=== PATIENT | male | born 1995 | race Caucasian/White ===

== ENCOUNTER 2018-10-30 16:34 | Emergency (ER) | payer SELFPAY ==
[~2018-10-30 16:34] MED LIST: FLUO40CA76 PO; NO RTN MEDS; QUET25TA31 PO
--- NOTE | 2018-10-30 16:42 | ER Report ---
History and Physical Time Seen By MD: 16:42 HPI/ROS CHIEF COMPLAINT: Diarrhea HISTORY OF PRESENT ILLNESS: This is a 23-year-old male presents to the emergency department for diarrhea. Patient states that for at least 1 week he's had diarrhea, continuous throughout the day, he states that yesterday he does have a little bit of blood noted in his stool, he does feel that this is from local irritation. No dark blood noted. Intermittent nausea no vomiting. Lower abdominal pain. Denies fevers or chills. No chest pain or shortness of breath. No headaches or rashes. No dysuria. REVIEW OF SYSTEMS: Constitutional: As above. Eyes: No discharge. ENT: No sore throat. Cardiovascular: No chest pain, no palpitations. Respiratory: No cough, no shortness of breath. Gastrointestinal: As above. Genitourinary: No hematuria. Musculoskeletal: No back pain. Skin: No rashes. Neurological: No headache. Allergies: Coded Allergies: No Known Drug Allergies (Verified , 10/30/18) Home Meds Active Scripts Ondansetron Hcl (ZOFRAN) 4 Mg Tablet, 4 MG PO Q4-6H PRN for prn, #20 TAB Prov:CAROLINE DÍAZ [facility] 10/30/18 Ciprofloxacin Hcl 500 Mg Tab (CIPRO 500 MG TAB) 500 Mg Tablet, 500 MG PO BID for 7 Days, #14 TAB 0 Refills Prov:CAROLINE DÍAZ [facility]- 10/30/18 Past Medical/Surgical History Patient has a past medical and surgical history of depression, cutting, sutures and scalp from a fall at age 4 otherwise normal other significant history. Reviewed Nurses Notes: Yes Hx Smoking: No Hx Alcohol Use: No Constitutional Vital Sign - Last 24 Hours 10/30/18 10/30/18 10/30/18 10/30/18 16:41 17:00 17:30 18:00 Temp 98.5 Pulse 65 75 ??? 64 Resp 20 21 Pulse Ox 96 95 92 O2 Delivery Room Air Physical Exam General Appearance: The patient is alert, has no immediate need for airway protection and no signs of toxicity. Eyes: Pupils equal and round no pallor or injection. ENT, Mouth: Mucous membranes are moist. Respiratory: There are no retractions, lungs are clear to auscultation. Cardiovascular: Regular rate and rhythm. Gastrointestinal: Abdomen is soft and non tender, no masses, bowel sounds del l. Neurological: Alert and oriented 4. Moving all extremities. Following all commands. No focal neurodeficits. Skin: Warm and dry, no rashes. Musculoskeletal: Neck is supple non tender. Extremities are nontender, nonswollen and have full range of motion. DIFFERENTIAL DIAGNOSIS: After history and physical exam differential diagnosis was considered for abdominal pain including but not limited to appendicitis, cholecystitis, colitis, gastritis and urinary tract infection. Medical Decision Making Data Points Result Diagram: 10/30/18 1654 10/30/18 1654 Laboratory Hematology Test 10/30/18 16:46 10/30/18 16:54 Urine Color Yellow Urine Clarity Clear Urine pH 5.0 pH (4.8-9.5) Urine Specific [place] 1.025 Urine Protein Negative mg/dL (NEGATIVE) Urine Glucose (UA) Negative mg/dL (NEGATIVE) Urine Ketones Negative mg/dL (NEGATIVE) Urine Blood Small (NEGATIVE) Urine Nitrite Negative (NEGATIVE) Urine Bilirubin Negative (NEGATIVE) Urine Urobilinogen Negative mg/dL (0.2-1.9) Urine Leukocyte Esterase Negative (NEGATIVE) Urine RBC <1 /HPF (0-2/HPF) Urine WBC 1 /HPF (0-5/HPF) Urine Squamous Epithelial Cells Few /LPF (</=FEW) Urine Bacteria Negative /HPF (NONE-FEW) Urine Mucus Few /HPF (NONE-FEW) Red Blood Count 5.60 M/uL (4.00-5.60) Mean Corpuscular Volume 92.0 fL (80.0-96.0) Mean Corpuscular Hemoglobin 31.7 pg (26.0-33.0) Mean Corpuscular Hemoglobin Concent 34.4 g/dL (32.0-36.0) Red Cell Distribution Width 13.1 % (11.5-14.5) Mean Platelet Volume 8.5 fL (7.2-11.1) Neutrophils (%) (Auto) 57.9 % (39.4-72.5) Lymphocytes (%) (Auto) 31.3 % (17.6-49.6) Monocytes (%) (Auto) 9.4 % (4.1-12.4) Eosinophils (%) (Auto) 1.0 % (0.4-6.7) Basophils (%) (Auto) 0.4 % (0.3-1.4) Nucleated RBC Relative Count (auto) 0.1 /100WBC Neutrophils # (Auto) 5.1 K/uL (2.0-7.4) Lymphocytes # (Auto) 2.8 K/uL (1.3-3.6) Monocytes # (Auto) 0.8 K/uL (0.3-1.0) Eosinophils # (Auto) 0.1 K/uL (0.0-0.5) Basophils # (Auto) 0.0 K/uL (0.0-0.1) Nucleated RBC Absolute Count (auto) 0.00 K/uL Sodium Level 141 mmol/L (137-145) Potassium Level 3.9 mmol/L (3.5-5.0) Chloride Level 106 mmol/L (98-107) Carbon Dioxide Level 26 mmol/L (22-30) Blood Urea Nitrogen 12 mg/dl (9-21) Creatinine 0.80 mg/dl (0.66-1.25) Glomerular Filtration Rate Calc > 60.0 Random Glucose 94 mg/dl (75-110) Calcium Level 9.5 mg/dl (8.4-10.2) Total Bilirubin 0.7 mg/dl (0.2-1.3) Aspartate Amino Transf (AST/SGOT) 24 U/L (0-35) Alanine Aminotransferase (ALT/SGPT) 22 U/L (0-56) Alkaline Phosphatase 107 U/L (0-126) Total Protein 8.5 g/dl (6.3-8.2) Albumin 4.7 g/dl (3.5-5.0) Chemistry Test 10/30/18 16:46 10/30/18 16:54 Urine Color Yellow Urine Clarity Clear Urine pH 5.0 pH (4.8-9.5) Urine Specific [place] 1.025 Urine Protein Negative mg/dL (NEGATIVE) Urine Glucose (UA) Negative mg/dL (NEGATIVE) Urine Ketones Negative mg/dL (NEGATIVE) Urine Blood Small (NEGATIVE) Urine Nitrite Negative (NEGATIVE) Urine Bilirubin Negative (NEGATIVE) Urine Urobilinogen Negative mg/dL (0.2-1.9) Urine Leukocyte Esterase Negative (NEGATIVE) Urine RBC <1 /HPF (0-2/HPF) Urine WBC 1 /HPF (0-5/HPF) Urine Squamous Epithelial Cells Few /LPF (</=FEW) Urine Bacteria Negative /HPF (NONE-FEW) Urine Mucus Few /HPF (NONE-FEW) White Blood Count 8.8 k/uL (4.5-11.0) Red Blood Count 5.60 M/uL (4.00-5.60) Hemoglobin 17.7 g/dL (14.0-18.0) Hematocrit 51.6 % (42.0-52.0) Mean Corpuscular Volume 92.0 fL (80.0-96.0) Mean Corpuscular Hemoglobin 31.7 pg (26.0-33.0) Mean Corpuscular Hemoglobin Concent 34.4 g/dL (32.0-36.0) Red Cell Distribution Width 13.1 % (11.5-14.5) Platelet Count 257 K/uL (150-450) Mean Platelet Volume 8.5 fL (7.2-11.1) Neutrophils (%) (Auto) 57.9 % (39.4-72.5) Lymphocytes (%) (Auto) 31.3 % (17.6-49.6) Monocytes (%) (Auto) 9.4 % (4.1-12.4) Eosinophils (%) (Auto) 1.0 % (0.4-6.7) Basophils (%) (Auto) 0.4 % (0.3-1.4) Nucleated RBC Relative Count (auto) 0.1 /100WBC Neutrophils # (Auto) 5.1 K/uL (2.0-7.4) Lymphocytes # (Auto) 2.8 K/uL (1.3-3.6) Monocytes # (Auto) 0.8 K/uL (0.3-1.0) Eosinophils # (Auto) 0.1 K/uL (0.0-0.5) Basophils # (Auto) 0.0 K/uL (0.0-0.1) Nucleated RBC Absolute Count (auto) 0.00 K/uL Glomerular Filtration Rate Calc > 60.0 Calcium Level 9.5 mg/dl (8.4-10.2) Total Bilirubin 0.7 mg/dl (0.2-1.3) Aspartate Amino Transf (AST/SGOT) 24 U/L (0-35) Alanine Aminotransferase (ALT/SGPT) 22 U/L (0-56) Alkaline Phosphatase 107 U/L (0-126) Total Protein 8.5 g/dl (6.3-8.2) Albumin 4.7 g/dl (3.5-5.0) Urinalysis Test 10/30/18 16:46 Urine Color Yellow Urine Clarity Clear Urine pH 5.0 pH (4.8-9.5) Urine Specific [place] 1.025 Urine Protein Negative mg/dL (NEGATIVE) Urine Glucose (UA) Negative mg/dL (NEGATIVE) Urine Ketones Negative mg/dL (NEGATIVE) Urine Blood Small (NEGATIVE) Urine Nitrite Negative (NEGATIVE) Urine Bilirubin Negative (NEGATIVE) Urine Urobilinogen Negative mg/dL (0.2-1.9) Urine Leukocyte Esterase Negative (NEGATIVE) Urine RBC <1 /HPF (0-2/HPF) Urine WBC 1 /HPF (0-5/HPF) Urine Squamous Epithelial Cells Few /LPF (</=FEW) Urine Bacteria Negative /HPF (NONE-FEW) Urine Mucus Few /HPF (NONE-FEW) EKG/Imaging Imaging PATIENT NAME: Hao Ceron : 1995 MR: [id number] V: [id number] EXAM DATE: [id number] ORDERING PHYSICIAN: CAROLINE DÍAZ TECHNOLOGIST: Location: [facility] - [place] Patient: Hao Ceron : 1995 Visit/Account:[id number] Date of Sevice: 10/30/2018 CT ABDOMEN PELVIS W/ CON HISTORY: lower abd pain, diarrhea x1 week, some blood TECHNIQUE: Following administration of IV contrast contiguous axial images acquired through the abdomen/pelvis. Coronal and sagittal reformatting also performed. One of the following dose optimization techniques was utilized in the performance of this exam: Automated exposure control; adjustment of the mA and/or kV according to the patient's size; or use of an iterative reconstruction technique. Specific details can be referenced in the facility's radiology CT exam operational policy. CONTRAST: 75 mL Isovue-370 COMPARISON: None. FINDINGS: Visualized lung bases: Negative. Hepatobiliary: Negative. Spleen: Negative. Adrenals: Negative. Pancreas: Negative. Kidneys ureters or bladder: Negative. Genitalia: Negative. GI: Distal colon is decompressed. There is diffuse mild mucosal thickening seen through the descending and sigmoid colon. While decompression can give this appearance, given history this probably represents mild uncomplicated colitis. There are no diverticuli. Proximal colon is unremarkable and the appendix appears normal. Small bowel normal. Vessels/spaces/nodes: Negative. Bones/soft tissues: Negative. Additional findings: None pertinent. IMPRESSION: Uncomplicated mild colitis involving the descending and sigmoid colon. Otherwise normal. Report Dictated By: Gianni Lindsay MD at 10/30/2018 5:55 PM Report E-Signed By: Gianni Lindsay MD at 10/30/2018 6:00 PM WSN:[id number] ED Course/Re-evaluation Clinical Indication for ER IV: Hydration, IV Access ED Course The patient was admitted to room. A history and physical obtained. Differential diagnoses were considered. An IV was started. A CBC, CMP and UA were collected. A 1 L normal saline bolus was given. 4 mg IV Zofran, with significant relief of symptoms. Abdomen pelvis CT showing colitis otherwise unremarkable. Patient was unable to provide a stool sample however I do feel that this could be infectious as this is been going on for at least 1 week, going treated as such, she was started on Cipro. Patient expressed understanding and was discharged home. I also recommended following up with and establishing with a primary care provider within one week, if this is a recurrent problem that he needs to follow-up with one of the general surgeons for possible colonoscopy and consult. He had no other questions or concerns at this time. Decision to Disposition Date: October 30, 2018 Decision to Disposition Time: 18:23 Depart Departure Latest Vital Signs Vital Signs Date Time Temp Pulse Resp B/P (MAP) Pulse Ox O2 Delivery O2 Flow Rate FiO2 10/30/18 18:00 64 21 92 10/30/18 16:41 98.5 Room Air Impression: Primary Impression: Colitis Condition: Improved Disposition: HOME OR SELF-CARE Referrals: CHELITA NICHOLAS JOHN A MD New Scripts Ondansetron Hcl (ZOFRAN) 4 Mg Tablet 4 MG PO Q4-6H PRN for prn, #20 TAB Prov: CAROLINE DÍAZ [facility]- 10/30/18 Ciprofloxacin Hcl 500 Mg Tab (CIPRO 500 MG TAB) 500 Mg Tablet 500 MG PO BID for 7 Days, #14 TAB 0 Refills Prov: CAROLINE DÍAZ [facility]- 10/30/18 Patient Instructions: Colitis (ED) Additional Instructions: Take the antibiotics for the diarrhea (colitis). Use the Zofran as needed for nausea and vomiting. Drink plenty of fluids. Get plenty of rest. Eat a bland diet for the next 24-48 hours. Establish with and follow up with a primary care provider within one week if no improvement. If you have recurrent diarrhea, you may need to follow up with surgery for a colonoscopy. Return to the ED for any other concerns or worsening symptoms. CAROLINE DÍAZ-BC October 30, 2018 16:42
[2018-10-30] MEDS ORDERED: NS(*) 0.9% 1000 ML BAG 1,000 ML IV ONE (16:54)
[2018-10-30] MEDS ORDERED: ONDANSETRON 4 MG/2 ML VIAL IVP ONE (16:55)
[2018-10-30 17:08] LABS: PLATELET COUNT, AUTOMATED 257 K/uL (150-450)
[2018-10-30] MEDS ORDERED: IOPAMIDOL 76% 150 ML INFUS BTL 150 ML ONE (17:28)
--- NOTE | 2018-10-30 18:03 | RADIOLOGY IMAGING REPORT ---
FACILITY: [facility] PATIENT NAME: Hao Ceron : 1995 MR: [id number] V: [id number] EXAM DATE: ORDERING PHYSICIAN: CAROLINE DÍAZ TECHNOLOGIST: Location: [facility] - [place] Patient: Hao Ceron : 1995 Visit/Account:[id number] Date of Sevice: 10/30/2018 CT ABDOMEN PELVIS W/ CON HISTORY: lower abd pain, diarrhea x1 week, some blood TECHNIQUE: Following administration of IV contrast contiguous axial images acquired through the abdom en/pelvis. Coronal and sagittal reformatting also performed. One of the following dose optimization techniques was utilized in the performance of this exam: Automated exposure control; adjustment of t he mA and/or kV according to the patient's size; or use of an iterative reconstruction technique. S pecific details can be referenced in the facility's radiology CT exam operational policy. CONTRAST: 75 mL Isovue-370 COMPARISON: None. FINDINGS: Visualized lung bases: Negative. Hepatobiliary: Negative. Spleen: Negative. Adrenals: Negative. Pancreas: Negative. Kidneys ureters or bladder: Negative. Genitalia: Negative. GI: Distal colon is decompressed. There is diffuse mild mucosal thickening seen through the descendi ng and sigmoid colon. While decompression can give this appearance, given history this probably repre sents mild uncomplicated colitis. There are no diverticuli. Proximal colon is unremarkable and the ap pendix appears normal. Small bowel normal. Vessels/spaces/nodes: Negative. Bones/soft tissues: Negative. Additional findings: None pertinent. IMPRESSION: Uncomplicated mild colitis involving the descending and sigmoid colon. Otherwise normal. Report Dictated By: Gianni Lindsay MD at 10/30/2018 5:55 PM Report E-Signed By: Gianni Lindsay MD at 10/30/2018 6:00 PM WSN:[id number]
[2018-10-30] MEDS ORDERED: CIPR-344 PO (18:20)
[2018-10-30] MEDS ORDERED: ONDA4TAB97 PO (18:20)
== END 2018-10-30 18:30 | disposition home or self-care (01) ==
LOC: ER 16:50
DX: K52.9 Noninfective gastroenteritis and colitis, unspecified (principal)
CPT/HCPCS: 74177; 81001; 85025; 96361; 96374; 99284; J2405; J7030; Q9967; 82040; 82247; 82310; 82374; 82435; 82565; 82947; 84075; 84132; 84155; 84295; 84450; 84460; 84520